=== PATIENT | male | born 1955 | race Caucasian/White ===

== ENCOUNTER 2020-05-06 07:39 | Day surgery (SDC) | payer OTHER ==
[2020-04-29 10:34] VITALS: BMI 17.9
[~2020-05-06 07:39] MED LIST: OFLOXACIN 0.3% OPHTHALMIC SOLUTION 5 ML BOTTLE OD SCH
--- OUTSIDE RECORDS SUMMARY | 2020-05-06 07:43 | XMS ---
:1955 Author Organization [facility] Care Team Providers Name Role Phone Kit Gruber MD Unavailable Unavailable TYRONE Gruber MD Unavailable Unavailable TYRONE Gruber MD Unavailable Unavailable TYRONE Gruber MD Unavailable Unavailable Cody Harrington Unavailable Unavailable Harley Duarte Unavailable Unavailable Jayce King Unavailable Unavailable Jac Unavailable Unavailable Cody Vargas Unavailable Unavailable Brian, Precious Unavailable Unavailable Re-disclosure Warning The records that you are about to access may contain information from federally- assisted alcohol or drug abuse programs. If such information is present, then the following federally mandated warning applies: This information has been disclosed to you from records protected by federal confidentiality rules (42 CFR part 2). The federal rules prohibit you from making any further disclosure of this information unless further disclosure is expressly permitted by the written consent of the person to whom it pertains or as otherwise permitted by 42 CFR part 2. A general authorization for the release of medical or other information is NOT sufficient for this purpose. The Federal rules restrict any use of the information to criminally investigate or prosecute any alcohol or drug abuse patient.The records that you are about to access may contain highly sensitive health information, the redisclosure of which is protected by Article 27-F of the [facility] Public Health law. If you continue you may haveaccess to information: Regarding HIV / AIDS; Provided by facilities licensed or operated by the [facility] Office of Mental Health; or Provided by the [facility] Office for People With Developmental Disabilities. If such information is present, then the following [facility] mandated warning applies: This information has been disclosed to you from confidential records which are protected by state law. State law prohibits you from making any further disclosure of this information without the specific written consent of the person to whom it pertains, or as otherwise permitted by law. Any unauthorized further disclosure in violation of state law may result in a fine or longterm sentence or both. A general authorization for the release of medical or other information is NOT sufficient authorization for further disclosure. Allergies and Adverse Reactions Type Description Substance Reaction Status Data Source(s ) 1 BEE STING KIT BEE STING KIT NEXTGEN ([facility] - [facility] ) 3 No Known Drug Allergies No Known Drug NEXTGEN ([facility] - [facility] Medical [facility]) Encounters Encounter Providers Location Date Indications Data Source(s ) Outpatient Attender: Nova 05/05/2020 NEXTGEN ([facility] [place] 10:52:00 AM Medical - [facility] ) Outpatient Attender: Nova 05/01/2020 NEXTGEN ([facility] GedersReferrer: Nova 03:10:00 PM Med ical - [place] [facility] ) Outpatient Attender: Lacey 04/30/2020 NEXTGEN ([facility] [place] 04:06:00 PM Medical - [place] [facility] ) Outpatient Attender: Lacey 04/29/2020 NEXTGEN ([facility] [place] 03:00:00 PM Medical - [place] FriedaenReferrer: EDT Medical [facility]) Kit Gruber MD Outpatient Attender: oPrter 04/24/2020 NEXTGEN ([facility] CharlesReferrer: 11:45:00 AM Medical - [place] Porter Nathan [facility] Medical [facility]) Outpatient Attender: Lacey 04/15/2020 NEXTGEN ([facility] [place] 11:00:00 AM Medical - [place] ) Outpatient Attender: Ammon 02/21/2020 PANFILOGE N ([facility] BrianReferrer: 11:40:00 [facility] EDT Medica l Group ) Outpatient Attender: Neelam 02/21/2020 NEXTGEN ([facility] Kellieeferrer: 12:00:00 AM Medical - [place] Ammon Torres EDT Medica l Group ) Outpatient Attender: Ammon 02/19/2020 NEXTGE N ([facility] Brian 12:01:00 PM Medical - [place] EDT [facility] PC) Outpatient Attender: Ammon 02/15/2020 NEXTGE N ([facility] BrianReferrer: 12:30:00 PM Medic al - [facility] Ammon Antonberg EDT Medica l Group PC) Outpatient Attender: Lacey 09/21/2019 NEXTGEN ([facility] [place] 04:49:00 PM Medical - [place] EST [facility]) Outpatient Attender: Kiki 07/05/2019 NEXTGEN ( [facility] [place] 03:28:00 PM Medical - [place] EST [facility]) Outpatient Attender: Lacey 07/02/2019 NEXTGEN ([facility] [place] 04:49:00 PM Medical - [place] EST Medical [facility] PC) Outpatient Attender: Lacey 06/27/2019 NEXTGEN ([facility] [place] 03:31:00 PM Medical - [place] EST Medical [facility] PC) Outpatient Attender: Lacey 06/26/2019 NEXTGEN ([facility] [place] 11:00:00 AM Medical - [facility] HoevenReferrer: EST Medical [facility]) Lacey Maguire Medications Medication Brand Start Product Dose Route Administrative Pharmacy [facility] Indications Reaction Description Data Name Date Form Instructions Instructions Source(s) [id number] [facility] 04/15/ inject 0.3 RP NEXTGEN 0.3 ML HRINE 2020 milliliter by ([facility] Epinephrine 12:00: intramuscular Medical - 1 MG/ML 00 AM route once as [facility] Auto-Inject EDT needed for Me dical or 0.3 anaphylaxis Group PC) mg/0.3 mL 0.3 mg/0.3 mL 50 mg 50 mg RP NEXTGEN ([facility] [place] [facility]) This may be an active medication. No end date is available. Start date above may not reflect actual date the medication was s tarted. 1,000 mg (120 mg-180 mg) RP NEXTGEN ([facility] - Hi 1,000 mg (120 mg-180 mg) [facility]) This may be an active medication. No end date is available. Start date above may not reflect actual date the medication was s tarted. "" "" take 1 tablet by oral route RP NEXTGEN ([facility] - Hi every day with food [facility]) This may be an active medication. No end date is available. Start date above may not reflect actual date the medication was s tarted. Ascorbic Acid 500 MG VITAMIN C RP NEXTGEN [facility] Extended Release Oral [facility]) Capsule 500 mg 500 mg This may be an active medication. No end date is available. Start date above may not reflect actual date the medication was s tarted. 100 mg 100 mg 07/14/2018 12:00:00 as directed [facility] AM EST [facility]) This may be an active medication. No end date is available. 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 03:10:00 PM ([facility] of blood chemistry EDT [facility]) K72.90 Hepatic failure, Decompensation of Diagnosis 05/01/2020 N EXTGEN unspecified cirrhosis of liver 03:10:00 PM ([facility] without coma [facility]) F17.200 Nicotine Tobacco dependence Diagnosis 04/29/2020 NEXTGE N dependence, 03:00:00 PM ([facility] unspecified, EDT [facility] uncomplicated [facility]) F10.10 Alcohol abuse, Alcohol abuse Diagnosis 04/29/2020 NEXTGEN uncomplicated 03:00:00 PM ([facility]) Z01.818 Encounter for Preoperative Diagnosis 04/29/2020 NEXTGEN other evaluation to rule 03:00:00 PM ([facility] preprocedural out surgical EDT [facility] examination contraindication [facility] edical Group PC) H25.13 Age-related Age-related nuclear Diagnosis 04/24/2020 NEXT GEN nuclear cataract, cataract of both 11:45:00 AM ([facility] bilateral eyes EDT Medical [facility] PC) 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 PC) G89.29 Other chronic pain Other chronic pain Diagnosis 9 NEXTGEN 11:00:00 AM ([facility] EST Medical [facility]) F10.20 Alcohol Alcoholism Diagnosis 06/26/2019 NEXTGEN dependence, 11:00:00 AM ([facility] uncomplicated EST Medical - [facility]) Z00.00 Encounter for Routine adult health Diagnosis 06/26/2019 N EXTGEN general adult maintenance 11:00:00 AM ([facility] EST Medical [facility] examination [facility] without abnormal Group PC ) findings Surgeries/Procedures Procedure Description Date Indications Data Source(s) ELECTROCARDIOGRAM ELECTROCARDIOGRAM 04/29/2020 NEXTG EN COMPLETE COMPLETE 12:00:00 ([facility] AM EDT Medical [facility]) OFFICE/OUTPATIENT VISIT OFFICE/OUTPATIENT VISIT 04/29/2020 NEXTGEN EST EST 12:00:00 ([facility] AM EDT Medical [facility]) EYE EXAM WITH PHOTOS EYE EXAM WITH PHOTOS 04/24/2020 NEXTGEN 12:00:00 ([facility] AM EDT Medical [facility] Medical [facility]) OFFICE/OUTPATIENT VISIT OFFICE/OUTPATIENT VISIT 04/24/2020 NEXTGEN NEW NEW 12:00:00 ([facility] AM EDT [facility]) TANGNTL BX SKIN SINGLE TANGNTL BX SKIN SINGLE 02/21/2020 NEXTGEN LES LES 12:00:00 ([facility]) OFFICE/OUTPATIENT VISIT OFFICE/OUTPATIENT VISIT 02/15/2020 NEXTGEN EST EST 12:00:00 ([facility]) TDAP VACCINE 7 YRS/> IM TDAP VACCINE 7 YRS/> IM 06/26/2019 NEXTGEN 12:00:00 ([facility]) IMMUNIZATION ADMIN IMMUNIZATION ADMIN 06/26/2019 NEX TGEN 12:00:00 ([facility]) PREV VISIT EST AGE 40-64 PREV VISIT EST AGE 40-64 06/26/2019 NEXTGEN 12:00:00 ([facility]) Visit to determ ldct Visit to determ ldct 06/26/2019 NEXTGEN eliezer martins 12:00:00 ([facility]) Results ID Date Data Source [id number] 05/02/2020 11:50:00 AM EDT [facility] Name Value Range Interpretation Description Data Sup porting Code Source(s) Document(s ) SARS [facility] coronavirus 2 RNA This lab was ordered by DEREK abdi [facility] and reported by [facility]. Procedure
[2020-05-06] MEDS ORDERED: CYCLOPENTOLATE HCL 1% OPHTH SOLN 2 ML BOTTLE ONE (07:48)
[2020-05-06] MEDS ORDERED: PHENYLEPHRINE 2.5% OPHTH SOLN 15 ML BOTTLE ONE (07:48)
[2020-05-06] MEDS ORDERED: KETOROLAC TROMETHAMINE 0.5% EYE DROP 1 DROP DROPS ONE (07:48)
[2020-05-06] MEDS ORDERED: TROPICAMIDE 1% OPHTH SOLN 15 ML BOTTLE ONE (07:48)
[2020-05-06] MEDS: OFLOXACIN 0.3% OPHTHALMIC SOLUTION 5 ML BOTTLE ONE ×5 (08:05→08:25)
[2020-05-06] MEDS: KETOROLAC TROMETHAMINE 0.5% EYE DROP 1 DROP DROPS OD SCH ×5 (08:05→08:25)
[2020-05-06] MEDS: CYCLOPENTOLATE HCL 1% OPHTH SOLN 2 ML BOTTLE OD SCH ×5 (08:05→08:25)
[2020-05-06] MEDS: TROPICAMIDE 1% OPHTH SOLN 15 ML BOTTLE OD SCH ×5 (08:05→08:25)
[2020-05-06] MEDS: PHENYLEPHRINE 2.5% OPHTH SOLN 15 ML BOTTLE OD SCH ×5 (08:05→08:25)
[2020-05-06 08:07] VITALS: TEMP 98.6
[2020-05-06] MEDS ORDERED: MIDAZOLAM HCL 2 MG/2 ML SINGLE DOSE VIAL ONE (09:23)
[2020-05-06] MEDS ORDERED: ACETAMINOPHEN 325 MG TABLET (FP) PO PRN (10:10)
--- NOTE | 2020-05-06 10:52 | OP ---
DATE OF OPERATION: 05/06/2020 PREOPERATIVE DIAGNOSIS: Cataract, right eye. POSTOPERATIVE DIAGNOSIS: Cataract, right eye. PROCEDURE PERFORMED: Cataract extraction via phacoemulsification with insertion of posterior chamber lens implant, right eye. SURGEON: Kit Whitney M.D. SENIOR INFORMATION SECURITY CONSULTANT: Elsa Carpenter M.D. ANESTHESIA: Topical and sedation. ESTIMATED BLOOD LOSS: Less than 1 mL. COMPLICATIONS: None. SPECIMENS: None. DESCRIPTION OF PROCEDURE: The patient was identified in the holding area. After all risks, benefits and alternatives were explained to the patient, informed consent was obtained. The right eye was marked with a marking pen. The patient then entered the operating room on an Eye Stretcher. After a formal time-out was performed, topical tetracaine eye drops were instilled onto the right eye. The right eye was then prepped and draped in the usual sterile fashion. An eyelid speculum was placed beneath the eyelids of the right eye. A supratemporal paracentesis incision was created using a 15-degree blade. Preservative-free epinephrine and preservative-free lidocaine were then injected into the anterior chamber. Viscoelastic was then injected into the anterior chamber. A 2.4-mm keratome blade was then used to make a inferotemporal incision. A 360-degree continuous curvilinear capsulorrhexis was then created using a bent cystotome and Utrata forceps. Hydrodissection was performed using balanced-saline solution on a cannula. Phacoemulsification was introduced to disassemble and remove the nucleus in its entirety. Irrigation/aspiration was then used to remove any remaining cortical material from the eye. The capsular bag was reformed using viscoelastic. An Forrest model [id number] with a power of 19.5 diopters, serial number [id number], was inspected and found to be defect free and injected into the capsular bag. Irrigation/aspiration was then used to remove any remaining viscoelastic from the eye. All wounds were hydrated with balanced-saline solution and noted to be watertight. There was a red reflex present. The anterior chamber was deep. The lens was perfectly centered in the capsular bag, and the eye had an adequate pressure. Topical antibiotic eye drops and ointment were then administered to the right eye. The eyelid speculum was removed from the right eye. The right eye was shielded. The patient tolerated the procedure well and left the operating room in stable condition. He is to follow up with me in the eye clinic tomorrow morning at 10 o'clock. KIT WHITNEY M.D. SHEMAR/[id number]
[2020-05-06 10:58] VITALS: BP 112/69; PULSE 79
== END 2020-05-06 11:00 | disposition home or self-care (01) ==
LOC: FASU 07:39
PROVIDERS: ATTEND Ophthalmology
PROC: 08RJ3JZ Replacement of Right Lens with Synthetic Substitute, Percutaneous Approach (ICD-10-PCS; principal; 2020-05-06 09:43)
DX: H26.9 Unspecified cataract (principal)